=== PATIENT | male | born 1980 | race Caucasian/White ===

== ENCOUNTER 2016-06-14 11:32 | Emergency (ER) | payer SELFPAY ==
[~2016-06-14] VITALS: Ht 190.5 cm; Wt 90.0 kg
[~2016-06-14 11:32] MED LIST: CLIN150 PO; CYCL1TAB29 PO; IBUP-232 PO; IBUP800T23 PO
[2016-06-14 11:33] VITALS: BP 94/57; PULSE 64; RESP 14; O2SAT 100
[2016-06-14] MEDS ORDERED: XANA2TAB2 PO (11:56)
[2016-06-14] MEDS ORDERED: SERO100T PO (11:56)
[2016-06-14] MEDS ORDERED: OXYC1CAP PO (11:56)
--- NOTE | 2016-06-14 12:16 | PD ---
HPI Chief Complaint: Pain: Acute or Chronic Time Seen by Provider: 12:08 Travel History International Travel<30 days: No Contact w/Intl Traveler<30days: No Traveled to known affect area: No History of Present Illness HPI 36-year-old male presents for evaluation of right leg pain and redness and swelling. Symptoms started 3 days ago. Describes it as an aching pain in his right lower leg which is constant and worse with palpation or ambulation. No fevers or chills. No trauma. No history of DVT or PE. Denies history of IV drug abuse. No other complaints. PFSH Past Medical History Diverticulitis: Yes Neurologic: Yes (PTSD, broke neck in 2010) Past Surgical History Other Surgery: Yes (LEFT FOOT) Social History Alcohol Use: Yes (12 pack daily beer) Tobacco Use: Yes (0.5 ppd) Substance Use: No Allergies-Medications (Allergen,Severity, Reaction): Coded Allergies: No Known Allergies (Unverified , 06/14/16) Reported Meds & Prescriptions Reported Meds & Active Scripts Active Keflex (Cephalexin) 500 Mg Cap 500 Mg PO Q6H 10 Days Bactrim DS (Sulfamethoxazole-Trimethoprim) 800-160 Mg Tab 1 Tab PO BID Reported Seroquel (Quetiapine Fumarate) 100 Mg Tab 100 Mg PO HS Xanax (Alprazolam) 2 Mg Tab 6 Mg PO DAILY PRN Oxycodone (Oxycodone HCl) 5 Mg Cap 5 Mg PO Q6H PRN Review of Systems Except as stated in HPI: all other systems reviewed are Neg Physical Exam Narrative GENERAL: Well-developed well-nourished male in no acute distress SKIN: Warm and dry. Skin on the right lower leg is erythematous and tender to palpation. There are some old superficial abrasions scattered on the lower extremities. HEAD: Atraumatic. Normocephalic. EYES: Pupils equal and round. No scleral icterus. No injection or drainage. ENT: No nasal bleeding or discharge. Mucous membranes pink and moist. NECK: Trachea midline. No JVD. CARDIOVASCULAR: Regular rate and rhythm. No murmur appreciated. RESPIRATORY: No accessory muscle use. Clear to auscultation. Breath sounds equal bilaterally. GASTROINTESTINAL: Abdomen soft, non-tender, nondistended. Hepatic and splenic margins not palpable. MUSCULOSKELETAL: Skin as noted above. 1+ pitting edema right lower leg. NEUROLOGICAL: Awake and alert. No obvious cranial nerve deficits. Motor grossly within normal limits. Normal speech. Data Data Last Documented VS Vital Signs Date Time Temp Pulse Resp B/P Pulse Ox O2 Delivery O2 Flow Rate FiO2 06/14/16 13:30 97.7 56 14 99/61 100 Room Air Orders Us Leg Venous Doppler (06/14/16 12:13) Complete Blood Count With Diff (06/14/16 12:13) Basic Metabolic Panel (Bmp) (06/14/16 12:13) Act Partial Throm Time (Ptt) (06/14/16 12:13) Prothrombin Time / Inr (Pt) (06/14/16 12:13) Iv Access Insert/Monitor (06/14/16 12:13) Sodium Chlor 0.9% 1000 Ml Inj (Ns 1000 M (06/14/16 13:19) Clindamycin Inj (Cleocin Inj) (06/14/16 13:30) Labs Laboratory Tests Test 06/14/16 12:25 White Blood Count 7.5 TH/MM3 Red Blood Count 4.73 MIL/MM3 Hemoglobin 14.5 GM/DL Hematocrit 42.4 % Mean Corpuscular Volume 89.5 FL Mean Corpuscular Hemoglobin 30.7 PG Mean Corpuscular Hemoglobin 34.3 % Concent Red Cell Distribution Width 14.4 % Platelet Count 237 TH/MM3 Mean Platelet Volume 7.8 FL Neutrophils (%) (Auto) 82.9 % Lymphocytes (%) (Auto) 7.7 % Monocytes (%) (Auto) 8.4 % Eosinophils (%) (Auto) 0.6 % Basophils (%) (Auto) 0.4 % Neutrophils # (Auto) 6.2 TH/MM3 Lymphocytes # (Auto) 0.6 TH/MM3 Monocytes # (Auto) 0.6 TH/MM3 Eosinophils # (Auto) 0.0 TH/MM3 Basophils # (Auto) 0.0 TH/MM3 CBC Comment DIFF FINAL Differential Comment Prothrombin Time 11.1 SEC Prothromb Time International 1.0 RATIO Ratio Activated Partial 32.0 SEC Thromboplast Time Sodium Level 135 MEQ/L Potassium Level 4.7 MEQ/L Chloride Level 98 MEQ/L Carbon Dioxide Level 30.2 MEQ/L Anion Gap 7 MEQ/L Blood Urea Nitrogen 8 MG/DL Creatinine 0.68 MG/DL Estimat Glomerular Filtration 131 ML/MIN Rate Random Glucose 95 MG/DL Calcium Level 9.2 MG/DL MDM Medical Decision Making Medical Screen Exam Complete: Yes Emergency Medical Condition: Yes Medical Record Reviewed: Yes Interpretation(s) Right leg ultrasound negative CBC unremarkable BMP unremarkable Differential Diagnosis Cellulitis, DVT, abscess, erysipelas Narrative Course 36-year-old male presents with right lower extremity redness and swelling for 3 days. Doppler ultrasound, basic lab workup been ordered. Lab work is reassuring. Ultrasound is negative for DVT. Examination is consistent with cellulitis. At this point in time the plan is to treat the patient has an outpatient. He'll be given a dose of clindamycin here and discharged with Bactrim and Keflex. He says that he has blisters on his right foot from walking and so he'll be given crutches. Diagnosis Primary Impression: Cellulitis of right leg Additional Instructions: Antibiotics as prescribed. [facility] very cheap [facility]. Start them today. Crutches as needed. Follow up with primary care physician and return for any new or worsening symptoms. Med/Other Pt SpecificInfo: Prescription(s) given Scripts Cephalexin (Keflex)500 Mg [id number] Mg PO Q6H 10 Days Ref 0 Prov:Brandon Valadez MD 06/14/16 Sulfamethoxazole-Trimethoprim (Bactrim DS)800-160 Mg Tab1 Tab PO BID #20 TAB Ref 0 Prov:Brandon Vaaldez MD 06/14/16 Disposition: 01 DISCHARGE HOME Condition: Stable Tomas Sosa Jun 14, 2016 12:16
[2016-06-14 12:43] LABS: AUTOMATED NEUTROPHIL # 6.2 TH/MM3 (1.8-7.7); BASOPHIL % 0.4 % (0.0-2.0); EOSINOPHIL % 0.6 % (0.0-4.0); HEMATOCRIT 42.4 % (39.0-51.0); HEMO FLAGS DIFF FINAL; LYMPH % 7.7 % (9.0-44.0); LYMPHOCYTE # 0.6 TH/MM3 (1.0-4.8); MEAN CELL VOLUME 89.5 FL (80.0-100.0); MEAN CORPUSCULAR HEMOGLOBIN 30.7 PG (27.0-34.0); MEAN CORPUSCULAR HGB CONC 34.3 % (32.0-36.0); MONO % 8.4 % (0.0-8.0); NEUT % 82.9 % (16.0-70.0); PLATELET COUNT 237 TH/MM3 (150-450); RED BLOOD COUNT 4.73 MIL/MM3 (4.50-5.90); RED CELL DISTRIBUTION WIDTH 14.4 % (11.6-17.2); WHITE BLOOD COUNT 7.5 TH/MM3 (4.0-11.0)
[2016-06-14 12:53] LABS: PROTHROMBIN TIME - PATIENT 11.1 SEC (9.8-11.6)
--- NOTE | 2016-06-14 12:57 | RADRPT ---
EXAM DATE/TIME: 06/14/2016 12:33 [facility] COMPARISON: No previous studies available for comparison. INDICATIONS : Right leg swelling and pain. MEDICAL HISTORY : Right leg pain. SURGICAL HISTORY : Left foot surgery. ENCOUNTER: Initial ACUITY: 1 day PAIN SCORE: 1/10 LOCATION: Right leg. TECHNIQUE: Venous ultrasound of the leg was performed from the inguinal ligament to the proximal calf. Real-time, color Doppler and spectral tracing, compression and augmentation techniques were us ed. FINDINGS: There is normal compressibility of the deep venous system from the inguinal region to the proximal ca lf. No echogenic clot is seen in the lumen of the common femoral, femoral, popliteal, and posterior tibial veins. There is a normal response of the venous system to proximal and distal augmentation an d respiration. CONCLUSION: Negative for deep venous thrombosis. Steve Minaya MD FACR on June 14, 2016 at 12:54 Board Certified Radiologist. This report was verified electronically.
[2016-06-14 13:01] LABS: BICARBONATE 30.2 MEQ/L (21.0-32.0); POTASSIUM 4.7 MEQ/L (3.5-5.1)
[2016-06-14] MEDS ORDERED: SODIUM CHLOR 0.9% 1000 ML INJ 1,000 ML IV SCH (13:19)
[2016-06-14 13:30] VITALS: BP 99/61; PULSE 56; RESP 14; TEMP 97.7; O2SAT 100
[2016-06-14] MEDS ORDERED: CLINDAMYCIN INJ 600 MG in SODIUM CHLORIDE 0.9% INJ 100 ML IV ONE (13:30)
[2016-06-14] MEDS ORDERED: BACT800T5 PO (13:35)
[2016-06-14] MEDS ORDERED: CEPH-460 PO (13:35)
== END 2016-06-14 15:16 | disposition home or self-care (01) ==
LOC: NEPB 11:32
DX: L03.115 Cellulitis of right lower limb (principal); F10.20 Alcohol dependence, uncomplicated; F17.210 Nicotine dependence, cigarettes, uncomplicated
CPT/HCPCS: 80048; 85025; 85610; 85730; 93971; 96365; 99284; E0113; J7030